=== PATIENT | female | born 1950 | race Caucasian/White ===

== ENCOUNTER → 2021-02-19 | Outpatient (CLI) | payer MEDICARE, OTHER ==
--- NOTE | 2021-02-19 16:19 | RAD ---
INDICATION: Screening for osteopenia/osteoporosis. Postmenopausal evaluation. COMPARISON: 10/18/2006 TECHNIQUE: Bone densitometry was performed through the lumbar spine and proximal femur. IMPRESSION: Lumbar Spine: BMD: 1.04 T-Score: -1.2 Range: Osteopenic. Increased by 8 percent from prior. Proximal Femur: BMD: 0.67 T-Score: -2.3 Range: On the border between osteopenia and osteoporosis. Decreased by 8 percent from prior World [employer] Organization Criteria for Bone Density: T-Score: > -1.0: Normal Range < -1.0 to -2.5: Osteopenic Range < -2.5: Osteoporotic Range Electronically signed by: Rohit Waterman MD (02/19/2021 4:16 PM) [id number]
== END ==
LOC: DXRAD 13:05
PROVIDERS: ATTEND Family Medicine
DX: Z78.0 Asymptomatic menopausal state (principal)
CPT/HCPCS: 77080